=== PATIENT | male | born 1940 | race African-American/Black ===

== ENCOUNTER 2018-12-22 13:21 | Inpatient (IN) ==
[2018-12-22 15:23] LABS: Apearance,Urine CLOUDY (Clear); Bilirubin,Urine Negative (Negative); Blood, Urine Large mg/dL (Negative); Glucose,Urine (UA) 50 mg/dL (Negative); Ketones,Urine Negative (Negative); Mucus,Urine Moderate /LPF (Occasional); Nitrite,Urine Negative (Negative); Protein,Urine 100 MG/DL; RBC,Urine 50883 /HPF (0-4); Urine Color Red (Yellow); Urine Specific Gravity 1.018 (1.001-1.035); Urine Urobilinogen < 2.0 EU/DL (0.2-1.0); WBC,Urine 126 /HPF (0-6)
[2018-12-22 15:32] LABS: Basophils % 0.4 % (0.0-0.8); Eosinophils # 0.1 10*3/uL (0.0-0.87); Eosinophils % 0.9 % (0.00-10.9); Hemoglobin 11.2 GM/DL (14.0-18.0); Immature Granulocytes % 0.4 %; Immature Granulocytes Absolute 0.02 #; Lymphocytes # 1.7 10*3/uL (1.4-4.0); Lymphocytes % 30.6 % (21.2-54.2); Mean Corpuscular Volume 94.3 FL (87-102); Mean Platelet Volume 12.3 FL (9.6-12.0); Monocytes % 8.6 % (1.7-12.7); Neutrophils % 59.1 % (38.7-73.9); Platelet Count 95 T/CUMM (130-400); Red Blood Count 3.71 MC/CUMM (3.8-5.5); Red Cell Distribution Width 13.1 % (9.3-17.3); White Blood Count 5.5 T/CUMM (4-12)
[2018-12-22 15:52] LABS: Albumin 3.5 G/DL (3.4-5.0); Bilirubin,Total 0.5 MG/DL (0.2-1.0); Calcium 8.9 MG/DL (8.5-10.1); Osmolality,Calculated 281.1 MOS/KG (273-304); Total Protein 7.7 G/DL (6.4-8.3)
[2018-12-22 15:54] LABS: Platelet Estimate Decreased
[2018-12-22] MEDS ORDERED: ONDANSETRON 4 MG/2 ML VIAL IV PRN (17:02)
[2018-12-22] MEDS ORDERED: ACETAMINOPHEN 325 MG TABLET PO PRN (17:02)
[2018-12-22] MEDS: DONEPEZIL 10 MG TABLET PO SCH (21:08)
[2018-12-22] MEDS: TAMSULOSIN 0.4 MG CAPSULE PO SCH (21:08)
[2018-12-22] MEDS: QUEtiapine 25 MG TABLET PO SCH (21:08)
[2018-12-22] MEDS: ROSUVASTATIN 20 MG TABLET PO SCH (21:08)
[2018-12-22] MEDS: LORazepam 2 MG/1 ML VIAL IV PRN (22:07)
[2018-12-23] MEDS: LORazepam 2 MG/1 ML VIAL IV PRN ×2 (03:18→09:22)
[2018-12-23 06:24] LABS: Basophils % 0.4 % (0.0-0.8); Eosinophils % 0.8 % (0.00-10.9); Hemoglobin 11.8 GM/DL (14.0-18.0); Immature Granulocytes % 0.4 %; Immature Granulocytes Absolute 0.02 #; Lymphocytes # 1.1 10*3/uL (1.4-4.0); Lymphocytes % 22.3 % (21.2-54.2); Mean Corpuscular HGB Conc 31.1 GM/DL (32-36); Mean Corpuscular Volume 98.2 FL (87-102); Mean Platelet Volume 12.9 FL (9.6-12.0); Monocytes % 10.8 % (1.7-12.7); Neutrophils % 65.3 % (38.7-73.9); Platelet Count 71 T/CUMM (130-400); Red Blood Count 3.87 MC/CUMM (3.8-5.5); Red Cell Distribution Width 13.1 % (9.3-17.3); White Blood Count 5.1 T/CUMM (4-12)
[2018-12-23 06:33] LABS: Albumin 2.9 G/DL (3.4-5.0); Bilirubin,Total 0.7 MG/DL (0.2-1.0); Calcium 8.6 MG/DL (8.5-10.1); Total Protein 7.3 G/DL (6.4-8.3)
[2018-12-23] MEDS: DEXTROSE 5% NACL 0.45% 1,000 ML IV SCH ×2 (07:59→16:25)
[2018-12-23] MEDS ORDERED: PANTOPRAZOLE 40 MG TABLET PO SCH (09:00)
[2018-12-23] MEDS: QUEtiapine 25 MG TABLET PO SCH ×3 (09:25→21:23)
[2018-12-23] MEDS: LISINOPRIL 10 MG TABLET PO SCH ×2 (09:25→13:00)
[2018-12-23] MEDS: PANTOPRAZOLE 40 MG TABLET PO SCH ×2 (09:26→13:00)
[2018-12-23] MEDS ORDERED: hydrALAZINE 20 MG/1 ML VIAL IV PRN (12:24)
[2018-12-23] MEDS: DONEPEZIL 10 MG TABLET PO SCH (21:23)
[2018-12-23] MEDS: ROSUVASTATIN 20 MG TABLET PO SCH (21:23)
[2018-12-23] MEDS: MELATONIN 3 MG TABLET PO PRN (21:23)
[2018-12-23] MEDS: TAMSULOSIN 0.4 MG CAPSULE PO SCH (21:23)
[2018-12-24] MEDS: DOCUSATE SODIUM 100 MG CAPSULE PO SCH ×3 (00:17→22:47)
[2018-12-24] MEDS: POLYETHYLENE GLYCOL POWDER 17 GM PACK PO SCH ×3 (00:18→22:47)
[2018-12-24] MEDS: LINACLOTIDE 145 MCG CAPSULE PO SCH (08:34)
[2018-12-24] MEDS: QUEtiapine 25 MG TABLET PO SCH ×2 (08:41→20:28)
[2018-12-24] MEDS: PANTOPRAZOLE 40 MG TABLET PO SCH (08:44)
[2018-12-24] MEDS: LISINOPRIL 10 MG TABLET PO SCH (08:45)
[2018-12-24] MEDS: AMOXICILLIN/CLAV 500 MG TABLET PO SCH ×2 (13:45→20:28)
[2018-12-24] MEDS: TAMSULOSIN 0.4 MG CAPSULE PO SCH (20:28)
[2018-12-24] MEDS: ROSUVASTATIN 20 MG TABLET PO SCH (20:28)
[2018-12-24] MEDS: DONEPEZIL 10 MG TABLET PO SCH (20:28)
[2018-12-24] MEDS: MELATONIN 3 MG TABLET PO PRN (20:28)
[2018-12-25] MEDS: LISINOPRIL 10 MG TABLET PO SCH (09:18)
[2018-12-25] MEDS: QUEtiapine 25 MG TABLET PO SCH (09:19)
[2018-12-25] MEDS: LINACLOTIDE 145 MCG CAPSULE PO SCH (09:20)
[2018-12-25] MEDS: PANTOPRAZOLE 40 MG TABLET PO SCH (09:21)
[2018-12-25] MEDS: DOCUSATE SODIUM 100 MG CAPSULE PO SCH (09:22)
[2018-12-25] MEDS: AMOXICILLIN/CLAV 500 MG TABLET PO SCH (09:22)
[2018-12-25] MEDS: POLYETHYLENE GLYCOL POWDER 17 GM PACK PO SCH (09:23)
[2018-12-25 11:37] VITALS: BP 137/71
== END 2018-12-25 17:15 | disposition hospice, home (50) | DRG 690 ==
LOC: N.ED 13:21 → N.EDINP 18:10 → SUPCPDRO 18:10 → SUATTDRO 18:10 → N.EDINP 18:44 → N.4E 18:53
PROVIDERS: ADMIT Family Medicine; ATTEND Hospitalist